=== PATIENT | male | born 1935 | race Caucasian/White ===

== ENCOUNTER → 2017-11-18 | Outpatient (CLI) | payer MEDICARE ==
[~2017-11-18] MED LIST: CENTRUM MEN'S1 EACH PO; CEPH500 PO; CIPR500 PO; CLIN300 PO; DIPATR PO; Digestive Enzy1 EACH PO; FINA5 PO; HYOS.125 SL; Keflex500 MG PO; LEVSOD137 PO; LEVSOD150 PO; LUPRON DEPOT7.5 MG IM; METR500 PO; OTC SUPPLEMENTS; PROM25 PO; TAMS.4ER PO; TRAM50 PO; WARF4 PO; [UNRECOGNIZED DRUG - REMARK]
== END ==
LOC: PLD 07:52 → LAB SHORT 07:52
DX: D48.5 Neoplasm of uncertain behavior of skin (principal)
CPT/HCPCS: 88305

== ENCOUNTER 2018-06-11 16:07 | Emergency (ER) | payer MEDICARE, SELFPAY ==
[~2018-06-11] VITALS: Ht 172.7 cm; Wt 70.3 kg
[2018-06-11 16:43] LABS: BASOPHILS ABSOLUTE AUTO 0.02 K/mm3 (0.00-0.23); BASOPHILS PERCENT AUTO 0 % (0-2); EOSINOPHILS ABSOLUTE AUTO 0.21 K/mm3 (0.00-0.68); EOSINOPHILS PERCENT AUTO 3 % (0-6); Hematocrit 37.6 % (37.0-53.0); Hemoglobin 12.3 g/dL (13.5-17.5); IMMATURE GRAN ABSOLUTE AUTO 0.01 K/mm3 (0.00-0.10); IMMATURE GRAN PERCENT AUTO 0 % (0-1); LYMPHOCYTES ABSOLUTE AUTO 1.04 K/mm3 (0.84-5.20); LYMPHOCYTES PERCENT AUTO 15 % (21-46); MONOCYTES ABSOLUTE AUTO 0.36 K/mm3 (0.16-1.47); MONOCYTES PERCENT AUTO 5 % (4-13); Mean Corpuscular HGB 30.9 pg (26.0-34.0); Mean Corpuscular HGB Conc 32.7 g/dL (31.5-36.5); Mean Corpuscular Volume 95 fL (80-100); Mean Platelet Volume 10.5 fL (9.1-12.4); NEUTROPHILS ABSOLUTE AUTO 5.15 K/mm3 (1.96-9.15); NEUTROPHILS PERCENT AUTO 76 % (41-73); Platelet Count 147 K/mm3 (150-400); RDW Coefficient Variation 13.3 % (11.7-14.2); RDW Standard Deviation 46.5 fL (35.1-46.3); Red Blood Cell Count 3.98 M/mm3 (4.30-5.90); White Blood Cell Count 6.79 K/mm3 (4.00-11.30)
[2018-06-11 16:53] LABS: Alanine Aminotransfer (ALT/SGP 28 U/L (12-78); Albumin, Blood 3.7 g/dL (3.4-5.0); Albumin/Globulin Ratio 1.2 (0.8-1.8); Alk Phos 69 U/L (50-136); Anion Gap 10 mmol/L (6-16); Aspartate Aminotrans (AST/SGOT 29 U/L (12-37); Bilirubin, Total 0.4 mg/dL (0.1-1.0); Blood Urea Nitrogen 28 mg/dL (8-24); Bun/Creatinine Ratio 25.5 (12.0-20.0); CO2, Blood 24 mmol/L (21-32); Calcium, Blood 8.6 mg/dL (8.5-10.1); Chloride, Blood 108 mmol/L (98-108); Globulin, Blood 3.1 g/dL (2.2-4.0); Glomerular Filtration Rate >60 (60-); Glucose, Blood 124 mg/dL (70-99); Potassium, Blood 3.8 mmol/L (3.5-5.5); Sodium, Blood 142 mmol/L (136-145); Total Protein, Blood 6.8 g/dL (6.4-8.2); Troponin I <0.015 ng/mL (0.000-0.040)
== END 2018-06-11 20:11 | disposition home or self-care (01) ==
LOC: ER 16:07
PROVIDERS: Emergency Medicine
DX: R41.0 Disorientation, unspecified (principal); R41.82 Altered mental status, unspecified; Z88.5 Allergy status to narcotic agent; Z79.899 Other long term (current) drug therapy; Z79.01 Long term (current) use of anticoagulants
CPT/HCPCS: 36415; 70450; 71046; 80053; 84484; 85025; 93005; 93010; 99285-25; J7120

== ENCOUNTER 2018-07-10 16:25 | Emergency (ER) | payer MEDICARE, SELFPAY ==
[~2018-07-10] VITALS: Ht 180.3 cm; Wt 83.9 kg
[2018-07-10 16:43] LABS: BASOPHILS ABSOLUTE AUTO 0.02 K/mm3 (0.00-0.23); BASOPHILS PERCENT AUTO 0 % (0-2); EOSINOPHILS ABSOLUTE AUTO 0.24 K/mm3 (0.00-0.68); EOSINOPHILS PERCENT AUTO 4 % (0-6); Hemoglobin 12.9 g/dL (13.5-17.5); IMMATURE GRAN ABSOLUTE AUTO 0.02 K/mm3 (0.00-0.10); IMMATURE GRAN PERCENT AUTO 0 % (0-1); LYMPHOCYTES PERCENT AUTO 18 % (21-46); MONOCYTES ABSOLUTE AUTO 0.41 K/mm3 (0.16-1.47); MONOCYTES PERCENT AUTO 7 % (4-13); Mean Corpuscular HGB 31.1 pg (26.0-34.0); Mean Corpuscular HGB Conc 33.1 g/dL (31.5-36.5); Mean Corpuscular Volume 94 fL (80-100); Mean Platelet Volume 10.2 fL (9.1-12.4); NEUTROPHILS ABSOLUTE AUTO 4.29 K/mm3 (1.96-9.15); NEUTROPHILS PERCENT AUTO 71 % (41-73); Platelet Count 150 K/mm3 (150-400); RDW Coefficient Variation 13.3 % (11.7-14.2); RDW Standard Deviation 46.3 fL (35.1-46.3); Red Blood Cell Count 4.15 M/mm3 (4.30-5.90); White Blood Cell Count 6.08 K/mm3 (4.00-11.30)
[2018-07-10 17:05] LABS: Prothrombin Time Results 19.8 Sec (9.7-11.5)
[2018-07-10 17:11] LABS: Alanine Aminotransfer (ALT/SGP 25 U/L (12-78); Albumin, Blood 3.9 g/dL (3.4-5.0); Albumin/Globulin Ratio 1.1 (0.8-1.8); Alk Phos 74 U/L (50-136); Anion Gap 8 mmol/L (6-16); Aspartate Aminotrans (AST/SGOT 23 U/L (12-37); Bilirubin, Total 0.5 mg/dL (0.1-1.0); Blood Urea Nitrogen 26 mg/dL (8-24); Bun/Creatinine Ratio 25.5 (12.0-20.0); CO2, Blood 26 mmol/L (21-32); Chloride, Blood 105 mmol/L (98-108); Creatinine, Blood 1.02 mg/dL (0.60-1.20); Globulin, Blood 3.5 g/dL (2.2-4.0); Glomerular Filtration Rate >60 (60-); Glucose, Blood 88 mg/dL (70-99); Potassium, Blood 4.3 mmol/L (3.5-5.5); Sodium, Blood 139 mmol/L (136-145); Total Protein, Blood 7.4 g/dL (6.4-8.2); Troponin I <0.015 ng/mL (0.000-0.040)
== END 2018-07-10 17:43 | disposition home or self-care (01) ==
LOC: ER 16:25
PROVIDERS: Emergency Medicine
DX: R07.9 Chest pain, unspecified (principal); E03.9 Hypothyroidism, unspecified; I48.91 Unspecified atrial fibrillation; K21.9 Gastro-esophageal reflux disease without esophagitis
CPT/HCPCS: 36415; 71046; 80053; 83880; 84484; 85025; 85610; 85730; 93005; 93010; 96374; 96375; 99284-25; J1885; J2405; J3010

== ENCOUNTER → 2019-02-20 | Outpatient (CLI) | payer MEDICARE, OTHER | END | disposition home or self-care (01) | LOC: LAB SHORT 15:42 → PLD 15:42 | DX: D48.5 Neoplasm of uncertain behavior of skin (principal) | CPT/HCPCS: 88304 ==

== ENCOUNTER 2019-08-08 14:59 | Emergency (ER) | payer MEDICARE ==
[~2019-08-08] VITALS: Ht 180.3 cm; Wt 81.7 kg
[2019-08-08 15:51] LABS: BASOPHILS ABSOLUTE AUTO 0.02 K/mm3 (0.00-0.23); BASOPHILS PERCENT AUTO 0 % (0-2); EOSINOPHILS ABSOLUTE AUTO 0.19 K/mm3 (0.00-0.68); EOSINOPHILS PERCENT AUTO 3 % (0-6); Hematocrit 38.7 % (37.0-53.0); Hemoglobin 12.5 g/dL (13.5-17.5); IMMATURE GRAN ABSOLUTE AUTO 0.02 K/mm3 (0.00-0.10); IMMATURE GRAN PERCENT AUTO 0 % (0-1); LYMPHOCYTES ABSOLUTE AUTO 1.27 K/mm3 (0.84-5.20); LYMPHOCYTES PERCENT AUTO 17 % (21-46); MONOCYTES ABSOLUTE AUTO 0.51 K/mm3 (0.16-1.47); MONOCYTES PERCENT AUTO 7 % (4-13); Mean Corpuscular HGB 31.3 pg (26.0-34.0); Mean Corpuscular HGB Conc 32.3 g/dL (31.5-36.5); Mean Corpuscular Volume 97 fL (80-100); Mean Platelet Volume 10.1 fL (9.1-12.4); NEUTROPHILS PERCENT AUTO 74 % (41-73); Platelet Count 171 K/mm3 (150-400); RDW Coefficient Variation 13.4 % (11.7-14.2); RDW Standard Deviation 48.1 fL (35.1-46.3); Red Blood Cell Count 3.99 M/mm3 (4.30-5.90); White Blood Cell Count 7.61 K/mm3 (4.00-11.30)
[2019-08-08 16:04] LABS: International Normalized Ratio 1.39; Prothrombin Time Results 14.3 Sec (9.7-11.5)
[2019-08-08 16:20] LABS: Alanine Aminotransfer (ALT/SGP 31 U/L (12-78); Albumin, Blood 3.6 g/dL (3.4-5.0); Albumin/Globulin Ratio 1.2 (0.8-1.8); Alk Phos 68 U/L (50-136); Anion Gap 5 mmol/L (6-16); Aspartate Aminotrans (AST/SGOT 23 U/L (12-37); Bilirubin, Total 0.4 mg/dL (0.1-1.0); Blood Urea Nitrogen 26 mg/dL (8-24); Bun/Creatinine Ratio 25.7 (12.0-20.0); CO2, Blood 27 mmol/L (21-32); Calcium, Blood 8.6 mg/dL (8.5-10.1); Chloride, Blood 107 mmol/L (98-108); Creatinine, Blood 1.01 mg/dL (0.60-1.20); Globulin, Blood 3.1 g/dL (2.2-4.0); Glomerular Filtration Rate >60 (60-); Glucose, Blood 93 mg/dL (70-99); Potassium, Blood 3.9 mmol/L (3.5-5.5); Sodium, Blood 139 mmol/L (136-145); Total Protein, Blood 6.7 g/dL (6.4-8.2); Troponin I <0.015 ng/mL (0.000-0.040)
== END 2019-08-08 17:46 | disposition home or self-care (01) ==
LOC: ER 14:59
PROVIDERS: Physician Assistant
DX: R06.00 Dyspnea, unspecified (principal); Z88.5 Allergy status to narcotic agent; Z79.899 Other long term (current) drug therapy; Z79.01 Long term (current) use of anticoagulants; Z85.818 Personal history of malignant neoplasm of other sites of lip, oral cavity, and pharynx
CPT/HCPCS: 36415; 71046; 80053; 83880; 84484; 85025; 85610; 93005; 93010; 99284-25

== ENCOUNTER → 2019-09-04 | Outpatient (CLI) | payer MEDICARE | END | disposition home or self-care (01) | LOC: LAB SHORT 13:30 → PLD 13:30 | DX: D03.4 Melanoma in situ of scalp and neck (principal) | CPT/HCPCS: 88305 ==

== ENCOUNTER 2019-12-03 14:20 | Emergency (ER) | payer MEDICARE, OTHER ==
[~2019-12-03] VITALS: Ht 180.3 cm; Wt 81.7 kg
[~2019-12-03 14:20] MED LIST changes: +Bactrim Ds Tab1 EACH PO
== END 2019-12-03 14:50 | disposition home or self-care (01) ==
LOC: ER 14:20
DX: Z48.01 Encounter for change or removal of surgical wound dressing (principal); Z88.8 Allergy status to other drugs, medicaments and biological substances; Z88.1 Allergy status to other antibiotic agents; Z88.5 Allergy status to narcotic agent; Z79.899 Other long term (current) drug therapy; Z79.01 Long term (current) use of anticoagulants
CPT/HCPCS: 99282

== ENCOUNTER → 2020-06-24 | Outpatient (CLI) | payer MEDICARE | END | disposition home or self-care (01) | LOC: PLD 07:43 → LAB SHORT 07:43 | DX: D09.8 Carcinoma in situ of other specified sites (principal); L82.1 Other seborrheic keratosis | CPT/HCPCS: 88305 ==

== ENCOUNTER 2021-05-03 17:38 | Emergency (ER) | payer MEDICARE ==
[~2021-05-03] VITALS: Ht 175.3 cm; Wt 72.6 kg
[2021-05-03 18:45] LABS: BASOPHILS ABSOLUTE AUTO 0.03 K/mm3 (0.00-0.23); BASOPHILS PERCENT AUTO 1 % (0-2); EOSINOPHILS ABSOLUTE AUTO 0.08 K/mm3 (0.00-0.68); EOSINOPHILS PERCENT AUTO 1 % (0-6); Hematocrit 37.5 % (37.0-53.0); IMMATURE GRAN ABSOLUTE AUTO 0.07 K/mm3 (0.00-0.10); IMMATURE GRAN PERCENT AUTO 1 % (0-1); LYMPHOCYTES ABSOLUTE AUTO 0.63 K/mm3 (0.84-5.20); LYMPHOCYTES PERCENT AUTO 11 % (21-46); MONOCYTES ABSOLUTE AUTO 0.38 K/mm3 (0.16-1.47); MONOCYTES PERCENT AUTO 7 % (4-13); Mean Corpuscular HGB 30.9 pg (26.0-34.0); Mean Corpuscular Volume 97 fL (80-100); Mean Platelet Volume 10.1 fL (9.1-12.4); NEUTROPHILS ABSOLUTE AUTO 4.63 K/mm3 (1.96-9.15); NEUTROPHILS PERCENT AUTO 80 % (41-73); Platelet Count 141 K/mm3 (150-400); RDW Coefficient Variation 13.4 % (11.7-14.2); RDW Standard Deviation 47.8 fL (35.1-46.3); Red Blood Cell Count 3.88 M/mm3 (4.30-5.90); White Blood Cell Count 5.82 K/mm3 (4.00-11.30)
[2021-05-03 18:59] LABS: Prothrombin Time Results 20.8 Sec (9.7-11.5)
[2021-05-03] MEDS ORDERED: HYDR1TAB94 PO (19:46)
== END 2021-05-03 20:00 | disposition home or self-care (01) ==
LOC: ER 17:38
PROVIDERS: Emergency Medicine
DX: S22.32XA Fracture of one rib, left side, initial encounter for closed fracture (principal); E03.9 Hypothyroidism, unspecified; I48.91 Unspecified atrial fibrillation; K21.9 Gastro-esophageal reflux disease without esophagitis; Z88.5 Allergy status to narcotic agent; Z88.0 Allergy status to penicillin; Z88.1 Allergy status to other antibiotic agents; Z79.01 Long term (current) use of anticoagulants; Z79.899 Other long term (current) drug therapy; W17.89XA Other fall from one level to another, initial encounter
CPT/HCPCS: 36415; 71101; 85025; 85610; 99283-25; A9270

== ENCOUNTER 2021-06-01 20:49 | Emergency (ER) | payer MEDICARE ==
[~2021-06-01] VITALS: Ht 167.6 cm; Wt 68.0 kg
[~2021-06-01 20:49] MED LIST changes: +HYDR1TAB94 PO
== END 2021-06-01 22:59 | disposition home or self-care (01) ==
LOC: ER 20:49
DX: J06.9 Acute upper respiratory infection, unspecified (principal); E03.9 Hypothyroidism, unspecified; I48.91 Unspecified atrial fibrillation; Z88.5 Allergy status to narcotic agent; Z88.8 Allergy status to other drugs, medicaments and biological substances; Z79.890 Hormone replacement therapy; Z79.02 Long term (current) use of antithrombotics/antiplatelets; Z20.822 Contact with and (suspected) exposure to COVID-19
CPT/HCPCS: 71045; 99284-25

== ENCOUNTER → 2021-08-04 | Outpatient (CLI) | payer MEDICARE ==
[2021-08-04 15:40] LABS: BASOPHILS ABSOLUTE AUTO 0.02 K/mm3 (0.00-0.23); BASOPHILS PERCENT AUTO 0 % (0-2); EOSINOPHILS ABSOLUTE AUTO 0.09 K/mm3 (0.00-0.68); EOSINOPHILS PERCENT AUTO 2 % (0-6); Hematocrit 37.6 % (37.0-53.0); Hemoglobin 12.3 g/dL (13.5-17.5); IMMATURE GRAN ABSOLUTE AUTO 0.01 K/mm3 (0.00-0.10); IMMATURE GRAN PERCENT AUTO 0 % (0-1); LYMPHOCYTES ABSOLUTE AUTO 1.02 K/mm3 (0.84-5.20); LYMPHOCYTES PERCENT AUTO 17 % (21-46); MONOCYTES ABSOLUTE AUTO 0.37 K/mm3 (0.16-1.47); MONOCYTES PERCENT AUTO 6 % (4-13); Mean Corpuscular HGB 31.1 pg (26.0-34.0); Mean Corpuscular HGB Conc 32.7 g/dL (31.5-36.5); Mean Corpuscular Volume 95 fL (80-100); Mean Platelet Volume 10.2 fL (9.1-12.4); NEUTROPHILS ABSOLUTE AUTO 4.61 K/mm3 (1.96-9.15); NEUTROPHILS PERCENT AUTO 75 % (41-73); Platelet Count 180 K/mm3 (150-400); RDW Coefficient Variation 14.5 % (11.7-14.2); RDW Standard Deviation 50.1 fL (35.1-46.3); Red Blood Cell Count 3.96 M/mm3 (4.30-5.90); White Blood Cell Count 6.12 K/mm3 (4.00-11.30)
[2021-08-04 15:51] LABS: Alanine Aminotransfer (ALT/SGP 23 U/L (12-78); Albumin, Blood 3.8 g/dL (3.4-5.0); Albumin/Globulin Ratio 1.2 (0.8-1.8); Alk Phos 59 U/L (40-126); Anion Gap 7 mmol/L (6-16); Aspartate Aminotrans (AST/SGOT 20 U/L (12-37); Bilirubin, Total 0.7 mg/dL (0.1-1.0); Blood Urea Nitrogen 27 mg/dL (8-24); CO2, Blood 29 mmol/L (21-32); Calcium, Blood 9.1 mg/dL (8.5-10.1); Chloride, Blood 106 mmol/L (98-108); Creatinine, Blood 1.04 mg/dL (0.60-1.20); Globulin, Blood 3.2 g/dL (2.2-4.0); Glomerular Filtration Rate >60 (60-); Glucose, Blood 102 mg/dL (70-99); Potassium, Blood 4.4 mmol/L (3.5-5.5); Sodium, Blood 142 mmol/L (136-145)
== END | disposition home or self-care (01) ==
LOC: LAB SHORT 15:35
PROVIDERS: Physician Assistant
DX: R59.1 Generalized enlarged lymph nodes (principal)
CPT/HCPCS: 80053; 85025

== ENCOUNTER 2021-08-29 13:45 | Emergency (ER) | payer MEDICARE ==
[~2021-08-29] VITALS: Ht 177.8 cm; Wt 79.4 kg
== END 2021-08-29 18:07 | disposition home or self-care (01) ==
LOC: ER 13:45
DX: C61 Malignant neoplasm of prostate (principal); R59.0 Localized enlarged lymph nodes; I48.91 Unspecified atrial fibrillation; E03.9 Hypothyroidism, unspecified; K21.9 Gastro-esophageal reflux disease without esophagitis; Z88.1 Allergy status to other antibiotic agents; Z88.5 Allergy status to narcotic agent; Z88.8 Allergy status to other drugs, medicaments and biological substances; Z79.01 Long term (current) use of anticoagulants; Z79.899 Other long term (current) drug therapy
CPT/HCPCS: 99282

== ENCOUNTER 2021-10-02 08:40 | Day surgery (SDC) | payer MEDICARE ==
[~2021-10-02] VITALS: Ht 177.8 cm; Wt 89.8 kg
[2021-10-02] MEDS ORDERED: ABIRATERONE AC250 MG PO (09:54)
[2021-10-02 10:28] LABS: BASOPHILS ABSOLUTE AUTO 0.02 K/mm3 (0.00-0.23); BASOPHILS PERCENT AUTO 0 % (0-2); EOSINOPHILS ABSOLUTE AUTO 0.13 K/mm3 (0.00-0.68); EOSINOPHILS PERCENT AUTO 3 % (0-6); Hematocrit 35.8 % (37.0-53.0); Hemoglobin 11.7 g/dL (13.5-17.5); IMMATURE GRAN ABSOLUTE AUTO 0.01 K/mm3 (0.00-0.10); IMMATURE GRAN PERCENT AUTO 0 % (0-1); LYMPHOCYTES ABSOLUTE AUTO 0.85 K/mm3 (0.84-5.20); LYMPHOCYTES PERCENT AUTO 18 % (21-46); MONOCYTES PERCENT AUTO 6 % (4-13); Mean Corpuscular HGB Conc 32.7 g/dL (31.5-36.5); Mean Corpuscular Volume 95 fL (80-100); Mean Platelet Volume 10.3 fL (9.1-12.4); NEUTROPHILS ABSOLUTE AUTO 3.36 K/mm3 (1.96-9.15); NEUTROPHILS PERCENT AUTO 72 % (41-73); Platelet Count 191 K/mm3 (150-400); RDW Coefficient Variation 13.7 % (11.7-14.2); RDW Standard Deviation 47.3 fL (35.1-46.3); Red Blood Cell Count 3.77 M/mm3 (4.30-5.90); White Blood Cell Count 4.67 K/mm3 (4.00-11.30)
[2021-10-02 10:42] LABS: International Normalized Ratio 1.13; Prothrombin Time Results 11.8 Sec (9.7-11.5)
[2021-10-02 10:56] LABS: Anion Gap 5 mmol/L (6-16); Blood Urea Nitrogen 19 mg/dL (8-24); Bun/Creatinine Ratio 23.5 (12.0-20.0); CO2, Blood 30 mmol/L (21-32); Calcium, Blood 8.4 mg/dL (8.5-10.1); Chloride, Blood 111 mmol/L (98-108); Creatinine, Blood 0.81 mg/dL (0.60-1.20); Glomerular Filtration Rate >60 (60-); Glucose, Blood 89 mg/dL (70-99); Potassium, Blood 3.5 mmol/L (3.5-5.5); Sodium, Blood 146 mmol/L (136-145)
--- NOTE | 2021-10-02 11:22 | NUR ---
PATIENT ARRIVED TO [facility] RECOVERY ROOM. RESTING, AWAKENS TO VERBAL QUESTIONS. LEFT LEG POPLITIAL SITE SOFT AND NONTENDER. DRESSING DRY AND IN TACT.
--- NOTE | 2021-10-02 11:45 | NUR ---
LEFT POP SITE SOFT AND NON TENDER. DRESSING DRY AND IN TACT.
--- NOTE | 2021-10-02 12:00 | NUR ---
PATIENT SITTING UP IN BED. SELF CATHED.
--- NOTE | 2021-10-02 12:10 | NUR ---
PATIENT SITTING UP IN BED EATING LUNCH. LEFT LEG SITE UNCHANGED.
--- NOTE | 2021-10-02 13:30 | NUR ---
ULI (MOUB TECH) REMOVED PURSE STRING SUTURE FROM LEFT LEG SITE. DRESSING APPLIED. NO BLEEDING NO HEMATOMA
--- NOTE | 2021-10-02 13:46 | NUR ---
PATIENT UP RESTROOM TO SELF CATH.
--- NOTE | 2021-10-02 14:20 | NUR ---
pateint dressed. verbalized understanding of discharge instructions and precautions. son here. iv site dced with catheter in tact. patient taken to son waiting in car for ride home
== END 2021-10-02 17:00 | disposition home or self-care (01) ==
LOC: MHTC 08:40
PROVIDERS: Radiology Diagnostic Radiology
DX: I87.1 Compression of vein (principal); C79.82 Secondary malignant neoplasm of genital organs; I25.2 Old myocardial infarction; Z88.5 Allergy status to narcotic agent; Z88.0 Allergy status to penicillin; Z92.21 Personal history of antineoplastic chemotherapy
CPT/HCPCS: 76937; 80048; 85025; 85610; 99152; 99153; C1725; C1753; C1769; C1876; C1887; C1894; J1644; J2250; J3010; J7030; J7050; Q9967

== ENCOUNTER → 2022-01-12 | Outpatient (CLI) | payer MEDICARE ==
[~2022-01-12] MED LIST changes: +ABIRATERONE AC250 MG PO
== END | disposition home or self-care (01) ==
LOC: LAB SHORT 16:44 → LAB 16:44
DX: R82.81 Pyuria (principal)
CPT/HCPCS: 87077; 87086; 87186

== ENCOUNTER 2022-03-30 06:29 | Day surgery (SDC) | payer MEDICARE ==
--- NOTE | 2022-03-30 07:16 | NUR ---
History, Chart, Medications and Allergies reviewed before start of procedure. Lungs clear T/O to Auscultation. Patient confirms NPO status and agrees with scheduled surgery. Pre-Op teaching done. Pt verbalizes understanding. Patient States Post-Procedure ride home has been arranged. Patient reports completing Chlorhexadine shower X2 prior to admission to hospital.
--- NOTE | 2022-03-30 10:26 | NUR ---
0912 RECEIVED PT FROM OR, AWAKE AND HAD NO ANESTHESIA ONLY LOCAL TO POSTERIOR NECK FOR CYST REMOVAL. 2X2 MICHAEL AND OPSITE OVER INCISION DRY AND INTACT. PT VERY PLEASANT AND DENIES ANY PAIN OR DISCOMFORT. ELEVATED BP NOTED. TOOK SEVERAL BP'S ON DIFFERENT LIMBS. SEE FLOW SHEET. PT TOLERATING PO FLUIDS. 929 DR SKAGGS MADE AWARE OF ELEVATED BP'S HE ADVISES PT TO CALL PCP ON ARRIVAL TO HOME TODAY FOR F/U ON BP. 3 LEAD PLACED AND IS NORMAL SINUS RYTHM. PT IS IN AGREEMENT.
== END 2022-03-30 23:31 | disposition home or self-care (01) ==
LOC: ORSCMMR 06:29 → ORD 08:00 → ORSCMMR 08:00 → ORD 08:30 → ORSCMMR 23:31
PROVIDERS: Surgery
PROC: 0JB40ZX Excision of Right Neck Subcutaneous Tissue and Fascia, Open Approach, Diagnostic (ICD-10-PCS; principal; 2022-03-30 08:00)
DX: L72.0 Epidermal cyst (principal); I48.0 Paroxysmal atrial fibrillation; Z79.01 Long term (current) use of anticoagulants; E03.9 Hypothyroidism, unspecified; I25.2 Old myocardial infarction; Z79.899 Other long term (current) drug therapy; Z85.46 Personal history of malignant neoplasm of prostate
CPT/HCPCS: 88304; J0690; J7120

== ENCOUNTER 2022-09-29 13:58 | Emergency (ER) | payer MEDICARE ==
[~2022-09-29] VITALS: Ht 182.9 cm; Wt 81.7 kg
[2022-09-29 15:16] LABS: BASOPHILS ABSOLUTE AUTO 0.01 K/mm3 (0.00-0.23); BASOPHILS PERCENT AUTO 0 % (0-2); EOSINOPHILS ABSOLUTE AUTO 0.27 K/mm3 (0.00-0.68); EOSINOPHILS PERCENT AUTO 5 % (0-6); Hematocrit 32.5 % (37.0-53.0); Hemoglobin 10.9 g/dL (13.5-17.5); IMMATURE GRAN ABSOLUTE AUTO 0.02 K/mm3 (0.00-0.10); IMMATURE GRAN PERCENT AUTO 0 % (0-1); LYMPHOCYTES ABSOLUTE AUTO 0.99 K/mm3 (0.84-5.20); LYMPHOCYTES PERCENT AUTO 17 % (21-46); MONOCYTES PERCENT AUTO 7 % (4-13); Mean Corpuscular HGB 32.6 pg (26.0-34.0); Mean Corpuscular HGB Conc 33.5 g/dL (31.5-36.5); Mean Corpuscular Volume 97 fL (80-100); Mean Platelet Volume 10.5 fL (9.1-12.4); NEUTROPHILS PERCENT AUTO 71 % (41-73); Platelet Count 181 K/mm3 (150-400); RDW Coefficient Variation 13.8 % (11.7-14.2); RDW Standard Deviation 49.4 fL (35.1-46.3); Red Blood Cell Count 3.34 M/mm3 (4.30-5.90); White Blood Cell Count 5.79 K/mm3 (4.00-11.30)
[2022-09-29 15:37] LABS: Albumin, Blood 3.2 g/dL (3.4-5.0); Bilirubin, Total 0.3 mg/dL (0.1-1.0); Calcium, Blood 8.4 mg/dL (8.5-10.1); Creatinine, Blood 0.94 mg/dL (0.60-1.20); Globulin, Blood 3.3 g/dL (2.2-4.0); Potassium, Blood 4.6 mmol/L (3.5-5.5); Total Protein, Blood 6.5 g/dL (6.4-8.2)
[2022-09-29 18:46] LABS: Source, Urine Clean Catch
[2022-09-29 18:53] LABS: Appearance, Urine Hazy (Clear); Bilirubin, Urine Neg (Neg); Blood, Urine 1+ (Neg); Color, Urine Yellow (P-Yellow); Glucose Qualitative, Urine Neg (Neg); Ketones, Urine Neg (Neg); Leukocyte Esterase, Urine 1+ (Neg); Nitrite, Urine Pos (Neg); Protein, Urine 1+ (Neg); Urobilinogen, Urine NORM (Normal)
[2022-09-29 19:10] LABS: Bacteria Many /hpf; Hyaline Casts 0-2 /lpf (0-2); Squamous Epithelial Cells Rare /hpf (Few)
[2022-09-29] MEDS ORDERED: CEFP200 PO (20:29)
== END 2022-09-29 20:45 | disposition home or self-care (01) ==
LOC: ER 13:58
PROVIDERS: Student in an Organized Health Care Education/Training Program
DX: N30.90 Cystitis, unspecified without hematuria (principal); M79.605 Pain in left leg; C61 Malignant neoplasm of prostate; C79.89 Secondary malignant neoplasm of other specified sites
CPT/HCPCS: 36415; 51798; 80053; 81001; 85025; A9270

== ENCOUNTER 2022-11-05 14:05 | Emergency (ER) | payer MEDICARE ==
[~2022-11-05] VITALS: Ht 170.2 cm; Wt 65.8 kg
[~2022-11-05 14:05] MED LIST changes: +CEFP200 PO
[2022-11-05] MEDS ORDERED: ERLEADA60 MG PO (14:16)
[2022-11-05 14:37] LABS: BASOPHILS ABSOLUTE AUTO 0.01 K/mm3 (0.00-0.23); BASOPHILS PERCENT AUTO 0 % (0-2); EOSINOPHILS ABSOLUTE AUTO 0.07 K/mm3 (0.00-0.68); EOSINOPHILS PERCENT AUTO 1 % (0-6); Hemoglobin 11.6 g/dL (13.5-17.5); IMMATURE GRAN ABSOLUTE AUTO 0.01 K/mm3 (0.00-0.10); IMMATURE GRAN PERCENT AUTO 0 % (0-1); LYMPHOCYTES ABSOLUTE AUTO 0.89 K/mm3 (0.84-5.20); LYMPHOCYTES PERCENT AUTO 13 % (21-46); MONOCYTES ABSOLUTE AUTO 0.34 K/mm3 (0.16-1.47); MONOCYTES PERCENT AUTO 5 % (4-13); Mean Corpuscular HGB Conc 33.1 g/dL (31.5-36.5); Mean Corpuscular Volume 97 fL (80-100); Mean Platelet Volume 9.8 fL (9.1-12.4); NEUTROPHILS ABSOLUTE AUTO 5.39 K/mm3 (1.96-9.15); NEUTROPHILS PERCENT AUTO 80 % (41-73); Platelet Count 183 K/mm3 (150-400); RDW Coefficient Variation 14.1 % (11.7-14.2); RDW Standard Deviation 50.3 fL (35.1-46.3); Red Blood Cell Count 3.62 M/mm3 (4.30-5.90); White Blood Cell Count 6.71 K/mm3 (4.00-11.30)
[2022-11-05 15:01] LABS: Albumin, Blood 3.3 g/dL (3.4-5.0); Albumin/Globulin Ratio 1.1 (0.8-1.8); Bilirubin, Total 0.5 mg/dL (0.1-1.0); Bun/Creatinine Ratio 25.3 (12.0-20.0); Calcium, Blood 7.5 mg/dL (8.5-10.1); Creatinine, Blood 0.87 mg/dL (0.60-1.20); Globulin, Blood 2.9 g/dL (2.2-4.0); Potassium, Blood 4.2 mmol/L (3.5-5.5); Total Protein, Blood 6.2 g/dL (6.4-8.2)
[2022-11-05] MEDS ORDERED: OXYC5 (19:29)
== END 2022-11-05 21:32 | disposition home or self-care (01) ==
LOC: ER 14:05
PROVIDERS: Physician Assistant
DX: R40.4 Transient alteration of awareness (principal); E83.51 Hypocalcemia; E83.42 Hypomagnesemia; E03.9 Hypothyroidism, unspecified; I48.91 Unspecified atrial fibrillation; Z79.899 Other long term (current) drug therapy; Z79.01 Long term (current) use of anticoagulants; Z88.0 Allergy status to penicillin; Z88.5 Allergy status to narcotic agent; Z85.46 Personal history of malignant neoplasm of prostate
CPT/HCPCS: 36415; 70450; 80053; 83735; 84443; 85025; J0610

== ENCOUNTER → 2023-05-06 | Outpatient (CLI) | payer MEDICARE ==
[~2023-05-06] MED LIST changes: +ERLEADA60 MG PO; +OXYC5; +Synthroid/Levo0.2 MG; +Synthroid200 MCG PO
[2023-05-06 11:48] LABS: BASOPHILS ABSOLUTE AUTO 0.01 K/mm3 (0.00-0.23); BASOPHILS PERCENT AUTO 0 % (0-2); EOSINOPHILS ABSOLUTE AUTO 0.06 K/mm3 (0.00-0.68); EOSINOPHILS PERCENT AUTO 1 % (0-6); Hematocrit 34.2 % (37.0-53.0); Hemoglobin 11.3 g/dL (13.5-17.5); IMMATURE GRAN ABSOLUTE AUTO 0.01 K/mm3 (0.00-0.10); IMMATURE GRAN PERCENT AUTO 0 % (0-1); LYMPHOCYTES ABSOLUTE AUTO 0.66 K/mm3 (0.84-5.20); LYMPHOCYTES PERCENT AUTO 12 % (21-46); MONOCYTES ABSOLUTE AUTO 0.35 K/mm3 (0.16-1.47); MONOCYTES PERCENT AUTO 6 % (4-13); Mean Corpuscular HGB 33.4 pg (26.0-34.0); Mean Corpuscular Volume 101 fL (80-100); Mean Platelet Volume 10.6 fL (9.1-12.4); NEUTROPHILS ABSOLUTE AUTO 4.35 K/mm3 (1.96-9.15); NEUTROPHILS PERCENT AUTO 80 % (41-73); Platelet Count 168 K/mm3 (150-400); RDW Coefficient Variation 14.6 % (11.7-14.2); RDW Standard Deviation 53.8 fL (35.1-46.3); Red Blood Cell Count 3.38 M/mm3 (4.30-5.90); White Blood Cell Count 5.44 K/mm3 (4.00-11.30)
[2023-05-06 11:52] LABS: Bun/Creatinine Ratio 19.4 (12.0-20.0); Calcium, Blood 8.3 mg/dL (8.5-10.1); Creatinine, Blood 1.08 mg/dL (0.60-1.20); Potassium, Blood 4.6 mmol/L (3.5-5.5)
== END ==
LOC: LAB SHORT 11:43 → LAB 11:43
PROVIDERS: Physician Assistant Surgical
DX: R06.00 Dyspnea, unspecified (principal); R07.89 Other chest pain
CPT/HCPCS: 80048; 83880; 84484; 85025

== ENCOUNTER 2023-07-25 08:00 | Emergency (ER) | payer MEDICARE ==
[~2023-07-25] VITALS: Ht 175.3 cm; Wt 81.7 kg
[2023-07-25 08:28] LABS: BASOPHILS ABSOLUTE AUTO 0.02 K/mm3 (0.00-0.23); BASOPHILS PERCENT AUTO 0 % (0-2); EOSINOPHILS ABSOLUTE AUTO 0.15 K/mm3 (0.00-0.68); EOSINOPHILS PERCENT AUTO 3 % (0-6); Hematocrit 34.1 % (37.0-53.0); Hemoglobin 11.3 g/dL (13.5-17.5); IMMATURE GRAN ABSOLUTE AUTO 0.03 K/mm3 (0.00-0.10); IMMATURE GRAN PERCENT AUTO 1 % (0-1); LYMPHOCYTES ABSOLUTE AUTO 0.63 K/mm3 (0.84-5.20); LYMPHOCYTES PERCENT AUTO 11 % (21-46); MONOCYTES ABSOLUTE AUTO 0.28 K/mm3 (0.16-1.47); MONOCYTES PERCENT AUTO 5 % (4-13); Mean Corpuscular HGB 33.6 pg (26.0-34.0); Mean Corpuscular HGB Conc 33.1 g/dL (31.5-36.5); Mean Corpuscular Volume 102 fL (80-100); Mean Platelet Volume 10.5 fL (9.1-12.4); NEUTROPHILS ABSOLUTE AUTO 4.74 K/mm3 (1.96-9.15); NEUTROPHILS PERCENT AUTO 81 % (41-73); Platelet Count 153 K/mm3 (150-400); RDW Coefficient Variation 13.9 % (11.7-14.2); RDW Standard Deviation 51.8 fL (35.1-46.3); Red Blood Cell Count 3.36 M/mm3 (4.30-5.90); White Blood Cell Count 5.85 K/mm3 (4.00-11.30)
[2023-07-25 08:40] LABS: Albumin, Blood 3.6 g/dL (3.4-5.0); Albumin/Globulin Ratio 1.3 (0.8-1.8); Bilirubin, Total 0.5 mg/dL (0.1-1.0); Bun/Creatinine Ratio 19.4 (12.0-20.0); Calcium, Blood 8.3 mg/dL (8.5-10.1); Creatinine, Blood 1.08 mg/dL (0.60-1.20); Globulin, Blood 2.7 g/dL (2.2-4.0); Potassium, Blood 3.7 mmol/L (3.5-5.5); Total Protein, Blood 6.3 g/dL (6.4-8.2)
[2023-07-25 10:53] LABS: Adenovirus Not Detected (NOT DETECT); Bordetella pertussis Not Detected (NOT DETECT); Chlamydophila pneumoniae Not Detected (NOT DETECT); Coronavirus 229E Not Detected (NOT DETECT); Coronavirus HKU1 Not Detected (NOT DETECT); Coronavirus NL63 Not Detected (NOT DETECT); Coronavirus OC43 Not Detected (NOT DETECT); Human Metapneumovirus Not Detected (NOT DETECT); Human Rhinovirus/Enterovirus Not Detected (NOT DETECT); Influenza A/2009-H1 Not Detected (NOT DETECT); Influenza A/H1 Not Detected (NOT DETECT); Influenza A/H3 Not Detected (NOT DETECT); Influenza B Not Detected (NOT DETECT); Mycoplasma pneumoniae Not Detected (NOT DETECT); Parainfluenza Virus 1 Not Detected (NOT DETECT); Parainfluenza Virus 2 Not Detected (NOT DETECT); Parainfluenza Virus 3 Not Detected (NOT DETECT); Parainfluenza Virus 4 Not Detected (NOT DETECT); Respiratory Syncytial Virus Not Detected (NOT DETECT); SARS-Cov-2 (COVID-19), BioFire Not Detected (NOT DETECT)
[2023-07-25 11:30] VITALS: BP 120/86
== END 2023-07-25 12:04 | disposition home or self-care (01) ==
LOC: ER 08:00
PROVIDERS: Student in an Organized Health Care Education/Training Program
DX: R06.02 Shortness of breath (principal); J39.8 Other specified diseases of upper respiratory tract; Z88.5 Allergy status to narcotic agent; Z88.8 Allergy status to other drugs, medicaments and biological substances; Z79.899 Other long term (current) drug therapy; Z79.01 Long term (current) use of anticoagulants; E03.9 Hypothyroidism, unspecified; I48.91 Unspecified atrial fibrillation; K21.9 Gastro-esophageal reflux disease without esophagitis; G43.909 Migraine, unspecified, not intractable, without status migrainosus
CPT/HCPCS: 0202U; 71045; 80053; 83880; 85025; 87070; 87077; 87186; 87205; 93005; 93010; 94640; 94664; 99285-25